=== PATIENT | male | born 2005 | race Caucasian/White ===

== ENCOUNTER 2024-09-23 21:11 | Inpatient (IN) | payer OTHER ==
[~2024-09-23] VITALS: Ht 193 cm; Wt 95.9 kg
[2024-09-23] MEDS ORDERED: ACET-907 PO (21:21)
[2024-09-23 21:55] LABS: BASO # 0.0 10^3/uL (0.0-0.2); BASO % 0.4 % (0.0-1.0); EOS # 0.1 10^3/uL (0.0-0.5); EOS % 0.8 % (0.0-3.0); LYMPH # 1.6 10^3/uL (1.5-5.0); LYMPH % 19.0 % (24.0-44.0); MONO # 1.1 10^3/uL (0.0-0.8); MONO % 13.0 % (2.0-8.0); NEUTROPHILS # 5.6 10^3/uL (1.5-8.5); NEUTROPHILS % 66.6 % (36.0-66.0); PLATELET COUNT, AUTOMATED 254 10^3/uL (150-450)
[2024-09-23 22:17] LABS: AMPHETAMINES LEVEL URINE NEGATIVE (NEGATIVE); BARBITURATES URINE NEGATIVE (NEGATIVE); BENZODIAZEPINES URINE NEGATIVE (NEGATIVE); CANNABINOIDS URINE NEGATIVE (NEGATIVE); COCAINE METABOLITE URINE NEGATIVE (NEGATIVE); METHADONE URINE NEGATIVE (NEGATIVE); OPIATES URINE NEGATIVE (NEGATIVE); PHENCYCLIDINE URINE NEGATIVE (NEGATIVE)
[2024-09-23 22:19] LABS: ETHYL ALCOHOL (ETHANOL) < 0.003 % (0.000-0.010)
[2024-09-23 22:21] LABS: ALT/SGPT 23 U/L (7.0-40); AST/SGOT 22 U/L (<34); CALCIUM LEVEL 8.9 MG/DL (8.5-10.1); CARBON DIOXIDE LEVEL 24 MMOL/L (20-31); CHLORIDE LEVEL 102 MMOL/L (98-107); CREATININE FOR GFR 1.13 MG/DL (0.70-1.30); GLOMERULAR FILTRATION RATE > 90.0 (>60); POTASSIUM SERUM 3.9 MMOL/L (3.5-5.1); SALICYLATE LEVEL < 3.0 MG/DL (<30); SODIUM LEVEL 140 MMOL/L (136-145)
[2024-09-23] MEDS: AZITHROMYCIN 250 MG TABLET PO ONE (23:00)
[2024-09-24] MEDS: AZITHROMYCIN 250 MG TABLET PO SCH (08:02)
[2024-09-24] MEDS ORDERED: HOME MED LIST COMPLETE! XX SCH (08:30)
[2024-09-24] MEDS ORDERED: ACETAMINOPHEN 325 MG TAB PO PRN (10:30)
[2024-09-24] MEDS ORDERED: IBUPROFEN 400 MG TAB PO PRN (10:30)
[2024-09-24] MEDS ORDERED: MOM 30 ML SUSPENSION UDC PO PRN (10:30)
[2024-09-24] MEDS ORDERED: MAALOX 30 ML SUSP *UDC PO PRN (10:30)
[2024-09-24 13:22] VITALS: BP 131/62; TEMP 97.8; O2SAT 100
[2024-09-25 06:10] VITALS: BP 111/53; TEMP 97.2; O2SAT 98
[2024-09-25] MEDS: AZITHROMYCIN 250 MG TABLET PO SCH (09:09)
[2024-09-25 14:00] VITALS: BP 119/60; TEMP 97
[2024-09-26 06:27] VITALS: BP 132/83; TEMP 97.9; O2SAT 100
[2024-09-26] MEDS: BENZONATATE 100 MG CAPSULE PO PRN (18:49)
[2024-09-26] MEDS: SERTRALINE HCL 50 MG TAB PO SCH (19:59)
[2024-09-27 05:58] VITALS: BP 157/70; TEMP 97.1; O2SAT 94
[2024-09-27 15:58] VITALS: BP 136/75; TEMP 97.6; O2SAT 100
[2024-09-27] MEDS: traZODone 50 MG TAB PO PRN (20:28)
[2024-09-28 06:39] VITALS: BP 125/60; TEMP 97.1; O2SAT 99
[2024-09-28 15:03] VITALS: BP 149/73; TEMP 97.7; O2SAT 97
[2024-09-29 06:36] VITALS: BP 101/53; TEMP 97.6; O2SAT 95
[2024-09-29 15:10] VITALS: BP 123/62; TEMP 98; O2SAT 100
[2024-09-30 06:39] VITALS: BP 130/64; TEMP 97; O2SAT 100
[2024-09-30] MEDS ORDERED: SERT50TA29 PO (09:34)
[2024-09-30 15:30] VITALS: BP 114/56; TEMP 97.7; O2SAT 99
[2024-10-01 06:33] VITALS: BP 107/56; TEMP 97.5; O2SAT 100
== END 2024-10-01 10:27 | disposition home or self-care (01) | DRG 882 ==
LOC: M ED 21:11 → M ED INP 09-24 10:28 → M PSY 09-24 11:52
PROVIDERS: ADMIT General Practice; ATTEND Psychiatry & Neurology Psychiatry
DX: F43.23 Adjustment disorder with mixed anxiety and depressed mood (principal); J15.7 Pneumonia due to Mycoplasma pneumoniae; R45.851 Suicidal ideations; F41.0 Panic disorder [episodic paroxysmal anxiety]; Z91.51 Personal history of suicidal behavior; F32.A Depression, unspecified